=== PATIENT | male | born 1970 | race Caucasian/White ===

== ENCOUNTER 2021-01-26 16:55 | Emergency (ER) | payer OTHER ==
[~2021-01-26] VITALS: Ht 177.8 cm; Wt 53.5 kg
== END 2021-01-26 17:42 | disposition left against medical advice (07) ==
LOC: ER 16:55
DX: K94.23 Gastrostomy malfunction (principal); I10 Essential (primary) hypertension; I73.00 Raynaud's syndrome without gangrene; Z86.73 Personal history of transient ischemic attack (TIA), and cerebral infarction without residual deficits

== ENCOUNTER 2021-01-27 10:12 | Emergency (ER) | payer OTHER ==
[~2021-01-27] VITALS: Ht 167.6 cm; Wt 52.2 kg
[2021-01-27 10:21] VITALS: BP 110/42
== END 2021-01-27 15:27 | disposition left against medical advice (07) ==
LOC: ER 10:12
DX: K94.23 Gastrostomy malfunction (principal); I10 Essential (primary) hypertension; Z95.1 Presence of aortocoronary bypass graft